=== PATIENT | female | born 1940 | race Asian ===

== ENCOUNTER 2022-11-02 06:13 | Inpatient (IN) | payer MEDICARE ==
[~2022-11-02] VITALS: Ht 160 cm; Wt 50.8 kg
[2022-11-02 08:00] VITALS: BP 141/92; TEMP 98; O2SAT 96
[2022-11-02] MEDS ORDERED: TEMAZEPAM 7.5 MG CAPSULE PO PRN (08:15)
[2022-11-02] MEDS ORDERED: MAGNESIUM HYDROXIDE 30 ML LIQUID UDC PO PRN (08:15)
[2022-11-02] MEDS ORDERED: MAG HYDROX/AL HYDROX/SIMETH 30 ML LIQUID UDC PO PRN (08:15)
[2022-11-02] MEDS ORDERED: ACETAMINOPHEN 325 MG TABLET PO PRN (08:15)
[2022-11-02] MEDS ORDERED: LORAZEPAM 0.5 MG TABLET PO PRN (08:15)
[2022-11-02] MEDS ORDERED: BLOOD SUGAR DIAGNOSTIC 1 EACH STRIP VI ONE (08:45)
[2022-11-02 13:47] LABS: THYROID STIMULATING HORMONE 2.108 mIU/mL (0.358-3.740)
[2022-11-02 15:15] VITALS: BP 140/84; TEMP 98; O2SAT 98
[2022-11-02 20:00] VITALS: BP 123/82; TEMP 98.4; O2SAT 100
[2022-11-02] MEDS: OLANZAPINE 2.5 MG TABLET PO SCH (20:21)
[2022-11-02] MEDS: HYDROCORTISONE 1% CREAM 30 GM TUBE TP SCH (20:25)
[2022-11-03] MEDS: HYDROCORTISONE 1% CREAM 30 GM TUBE TP SCH ×5 (06:37→23:36)
[2022-11-03 08:08] LABS: BASOPHILS % (AUTO) 0.5 % (0.0-2.0); EOSINOPHILS # (AUTO) 0.1 K/uL (0.0-0.7); EOSINOPHILS % (AUTO) 1.6 % (0.0-7.0); HEMATOCRIT 36.7 % (31.2-41.9); HEMOGLOBIN 12.3 g/dL (10.9-14.3); LYMPHOCYTES # (AUTO) 0.5 K/uL (0.8-4.8); LYMPHOCYTES % (AUTO) 13.7 % (20.5-51.5); MEAN CORPUSCULAR HEMOGLOBIN 31.3 uug (24.7-32.8); MEAN CORPUSCULAR HGB CONC 34 g/dL (32.3-35.6); MEAN CORPUSCULAR VOLUME 93.4 fL (75.5-95.3); MONOCYTES # (AUTO) 0.3 K/uL (0.1-1.30); NEUTROPHILS # (AUTO) 3.1 K/uL (1.8-8.9); NEUTROPHILS % (AUTO) 77.2 % (38.5-71.5); PLATELET COUNT (AUTO) 252 K/uL (179-408); RED BLOOD CELL COUNT(AUTO) 3.93 MIL/uL (3.63-4.92); RED CELL DISTRIBUTION WIDTH 13.2 % (12.3-17.7)
[2022-11-03 08:11] VITALS: BP 115/77; TEMP 98.2; O2SAT 99
[2022-11-03 08:21] LABS: DIFFERENTIAL COMMENT 1
[2022-11-03 08:25] LABS: CALCIUM 8.5 mg/dL (8.5-10.1); CARBON DIOXIDE 29 mmol/L (21-32); CHLORIDE 104 mmol/L (98-107); CREATININE 0.6 mg/dL (0.6-1.3); GLUCOSE 105 mg/dL (74-106); POTASSIUM 3.3 mmol/L (3.5-5.1); SODIUM SERUM 141 mmol/L (136-145); UREA NITROGEN, BLOOD 17 mg/dL (7-18)
[2022-11-03] MEDS: POTASSIUM CHLORIDE 10 MEQ TAB.PRT.SR PO SCH ×2 (13:45→15:45)
[2022-11-03 15:39] VITALS: BP_SYST 108; BP_SYST 133; BP_DIAS 65; BP_DIAS 74; TEMP 98.2; O2SAT 98
[2022-11-03 20:11] VITALS: BP 111/66; TEMP 98.3; O2SAT 98
[2022-11-03] MEDS: OLANZAPINE 2.5 MG TABLET PO SCH (20:16)
[2022-11-04] MEDS: HYDROCORTISONE 1% CREAM 30 GM TUBE TP SCH ×3 (05:32→18:39)
[2022-11-04 08:04] VITALS: BP 142/90; TEMP 98; O2SAT 100
[2022-11-04 15:37] VITALS: BP 106/57; TEMP 98; O2SAT 98
[2022-11-04 20:05] VITALS: BP 118/62; TEMP 98.2; O2SAT 98
[2022-11-04] MEDS: OLANZAPINE 2.5 MG TABLET PO SCH (21:00)
[2022-11-05] MEDS: HYDROCORTISONE 1% CREAM 30 GM TUBE TP SCH ×4 (06:00→18:23)
[2022-11-05 07:30] VITALS: BP 172/104; TEMP 98; O2SAT 99
[2022-11-05] MEDS ORDERED: CLONIDINE-TTS 1 PATCH TD SCH (12:00)
[2022-11-05 15:37] VITALS: BP 147/91; TEMP 98; O2SAT 99
[2022-11-05 20:43] VITALS: BP 117/66; TEMP 98; O2SAT 99
[2022-11-05] MEDS: OLANZAPINE 2.5 MG TABLET PO SCH (21:00)
[2022-11-06] MEDS: HYDROCORTISONE 1% CREAM 30 GM TUBE TP SCH ×4 (06:00→17:48)
[2022-11-06 08:03] VITALS: BP 167/99; TEMP 98.3; O2SAT 98
[2022-11-06 16:20] VITALS: BP 186/110; TEMP 98.1; O2SAT 99
[2022-11-06 17:51] VITALS: BP 148/95; O2SAT 99
[2022-11-06] MEDS ORDERED: METOPROLOL TARTRATE 25 MG TABLET PO ONE (18:00)
[2022-11-06 20:00] VITALS: BP 154/92; TEMP 98.4; O2SAT 100
[2022-11-06] MEDS: OLANZAPINE 2.5 MG TABLET PO SCH (21:00)
[2022-11-07] MEDS: HYDROCORTISONE 1% CREAM 30 GM TUBE TP SCH ×5 (05:59→23:58)
[2022-11-07 08:45] VITALS: BP 151/91; TEMP 98.2; O2SAT 98
[2022-11-07] MEDS: CLONIDINE TTS 2 PATCH TD SCH (14:32)
[2022-11-07 16:35] VITALS: BP 130/87; TEMP 97.9; O2SAT 98
[2022-11-07] MEDS: OLANZAPINE 2.5 MG TABLET PO SCH (20:05)
[2022-11-07 20:27] VITALS: BP 125/80; TEMP 98; O2SAT 99
[2022-11-08] MEDS: HYDROCORTISONE 1% CREAM 30 GM TUBE TP SCH ×3 (05:57→17:07)
[2022-11-08 07:51] VITALS: BP 141/86; TEMP 98.3; O2SAT 99
[2022-11-08 16:09] VITALS: BP 163/97; TEMP 98; O2SAT 98
[2022-11-08] MEDS ORDERED: OLANZAPINE 10 MG VIAL IM PRN (16:30)
[2022-11-08] MEDS: OLANZAPINE 2.5 MG TABLET PO SCH (20:45)
[2022-11-08 21:10] VITALS: BP 149/87; TEMP 98; O2SAT 100
[2022-11-09] MEDS: HYDROCORTISONE 1% CREAM 30 GM TUBE TP SCH ×4 (06:26→18:40)
[2022-11-09 08:00] VITALS: BP 146/83; TEMP 98; O2SAT 100
[2022-11-09 16:38] VITALS: BP 165/87; TEMP 97; O2SAT 100
[2022-11-09 20:06] VITALS: BP 143/78; TEMP 98.2; O2SAT 100
[2022-11-09] MEDS: OLANZAPINE 2.5 MG TABLET PO SCH (20:40)
[2022-11-10] MEDS: HYDROCORTISONE 1% CREAM 30 GM TUBE TP SCH ×4 (00:20→17:38)
[2022-11-10 07:43] VITALS: BP 138/79; TEMP 97.6; O2SAT 100
[2022-11-10 08:12] LABS: CALCIUM 9.1 mg/dL (8.5-10.1); CARBON DIOXIDE 30 mmol/L (21-32); CHLORIDE 103 mmol/L (98-107); CREATININE 0.7 mg/dL (0.6-1.3); GLUCOSE 85 mg/dL (74-106); POTASSIUM 3.9 mmol/L (3.5-5.1); SODIUM SERUM 139 mmol/L (136-145); UREA NITROGEN, BLOOD 20 mg/dL (7-18)
[2022-11-10] MEDS ORDERED: OLANZAPINE 10 MG VIAL IM PRN (10:45)
[2022-11-10] MEDS: OLANZAPINE 2.5 MG TABLET PO SCH ×2 (11:19→20:22)
[2022-11-10 15:40] VITALS: BP 116/62; TEMP 98.6; O2SAT 98
[2022-11-10 20:35] VITALS: BP 146/72; TEMP 98.2; O2SAT 100
[2022-11-11] MEDS: HYDROCORTISONE 1% CREAM 30 GM TUBE TP SCH ×5 (06:40→23:22)
[2022-11-11] MEDS: OLANZAPINE 2.5 MG TABLET PO SCH ×2 (09:30→20:20)
[2022-11-11 11:01] VITALS: BP 164/91; TEMP 98; O2SAT 99
[2022-11-11 17:34] VITALS: BP 168/87; TEMP 98.2
[2022-11-11 21:26] VITALS: BP 132/79; TEMP 98.2; O2SAT 98
[2022-11-12] MEDS: HYDROCORTISONE 1% CREAM 30 GM TUBE TP SCH ×3 (05:40→16:28)
[2022-11-12 08:00] VITALS: BP 159/87; TEMP 98.1; O2SAT 100
[2022-11-12] MEDS: OLANZAPINE 2.5 MG TABLET PO SCH (09:19)
[2022-11-12] MEDS: DIVALPROEX SPRINKLE 125 MG CAP.SPRINK PO SCH ×3 (09:23→16:27)
[2022-11-12 15:57] VITALS: BP 131/78; TEMP 98.1; O2SAT 98
[2022-11-12] MEDS: OLANZAPINE 5 MG TABLET PO SCH (20:03)
[2022-11-12 21:23] VITALS: BP 143/79; TEMP 98; O2SAT 96
[2022-11-13 07:57] VITALS: BP 193/95; TEMP 98.3; O2SAT 98
[2022-11-13] MEDS: DIVALPROEX SPRINKLE 125 MG CAP.SPRINK PO SCH ×3 (08:21→16:40)
[2022-11-13] MEDS: OLANZAPINE 2.5 MG TABLET PO SCH (08:21)
[2022-11-13 16:34] VITALS: BP 127/73; TEMP 98.1; O2SAT 98
[2022-11-13 20:00] VITALS: BP 140/71; TEMP 98; O2SAT 98
[2022-11-13] MEDS: OLANZAPINE 5 MG TABLET PO SCH (20:46)
[2022-11-14 08:08] VITALS: BP 143/85; TEMP 98.5; O2SAT 98
[2022-11-14] MEDS: DIVALPROEX SPRINKLE 125 MG CAP.SPRINK PO SCH ×3 (08:27→16:38)
[2022-11-14] MEDS: OLANZAPINE 2.5 MG TABLET PO SCH (08:27)
[2022-11-14] MEDS: CLONIDINE TTS 2 PATCH TD SCH (13:44)
[2022-11-14 16:17] VITALS: BP 133/84; TEMP 98.2; O2SAT 99
[2022-11-14 19:54] VITALS: BP 161/72; TEMP 98; O2SAT 98
[2022-11-14] MEDS: OLANZAPINE 5 MG TABLET PO SCH (20:15)
[2022-11-15 07:52] VITALS: BP 148/87; TEMP 98.2; O2SAT 99
[2022-11-15] MEDS: DIVALPROEX SPRINKLE 125 MG CAP.SPRINK PO SCH ×2 (08:52→16:56)
[2022-11-15] MEDS: OLANZAPINE 2.5 MG TABLET PO SCH (08:52)
[2022-11-15] MEDS ORDERED: DIVALPROEX SPRINKLE 125 MG CAP.SPRINK PO ONE (13:00)
[2022-11-15 15:10] VITALS: BP 149/51; TEMP 98.3; O2SAT 99
[2022-11-15 20:27] VITALS: BP 176/88; TEMP 97.8; O2SAT 95
[2022-11-15] MEDS: OLANZAPINE 5 MG TABLET PO SCH (20:49)
[2022-11-15 22:02] VITALS: BP 154/88
[2022-11-16 07:05] LABS: BASOPHILS % (AUTO) 0.8 % (0.0-2.0); EOSINOPHILS # (AUTO) 0.1 K/uL (0.0-0.7); EOSINOPHILS % (AUTO) 2.4 % (0.0-7.0); HEMATOCRIT 37.7 % (31.2-41.9); HEMOGLOBIN 12.5 g/dL (10.9-14.3); LYMPHOCYTES # (AUTO) 1.1 K/uL (0.8-4.8); LYMPHOCYTES % (AUTO) 29.6 % (20.5-51.5); MEAN CORPUSCULAR HEMOGLOBIN 31.6 uug (24.7-32.8); MEAN CORPUSCULAR HGB CONC 33 g/dL (32.3-35.6); MEAN CORPUSCULAR VOLUME 94.8 fL (75.5-95.3); MONOCYTES # (AUTO) 0.2 K/uL (0.1-1.30); MONOCYTES % (AUTO) 5.7 % (0.0-11.0); NEUTROPHILS # (AUTO) 2.2 K/uL (1.8-8.9); NEUTROPHILS % (AUTO) 61.5 % (38.5-71.5); PLATELET COUNT (AUTO) 324 K/uL (179-408); RED BLOOD CELL COUNT(AUTO) 3.97 MIL/uL (3.63-4.92); RED CELL DISTRIBUTION WIDTH 13.8 % (12.3-17.7); WHITE BLOOD COUNT (AUTO) 3.6 K/uL (3.8-11.8)
[2022-11-16 07:25] LABS: DIFFERENTIAL COMMENT 1
[2022-11-16 07:41] LABS: ALANINE AMINOTRANSFERASE 16 U/L (14-59); ALBUMIN 3.8 g/dL (3.4-5.0); ALKALINE PHOSPHATASE 60 U/L (50-136); ASPARTATE AMINOTRANSFERASE 12 U/L (15-37); BILIRUBIN,TOTAL 0.4 mg/dL (0.2-1.0); CALCIUM 9.1 mg/dL (8.5-10.1); CARBON DIOXIDE 31 mmol/L (21-32); CHLORIDE 106 mmol/L (98-107); CREATININE 0.6 mg/dL (0.6-1.3); GLUCOSE 80 mg/dL (74-106); POTASSIUM 3.7 mmol/L (3.5-5.1); SODIUM SERUM 143 mmol/L (136-145); TOTAL PROTEIN, SERUM 7.5 g/dL (6.4-8.2); UREA NITROGEN, BLOOD 18 mg/dL (7-18); VALPROIC ACID 49 ug/mL (50-100)
[2022-11-16 08:30] VITALS: BP 157/77; TEMP 98.2; O2SAT 100
[2022-11-16] MEDS: DIVALPROEX SPRINKLE 125 MG CAP.SPRINK PO SCH (08:30)
[2022-11-16] MEDS: OLANZAPINE 2.5 MG TABLET PO SCH (08:30)
[2022-11-16] MEDS ORDERED: AMLODIPINE 5 MG TABLET PO SCH (12:00)
== END 2022-11-16 11:48 | DRG 885 ==
LOC: ER 06:25 → GPS 07:41
PROVIDERS: ADMIT Psychiatry & Neurology Psychosomatic Medicine
DX: F29 Unspecified psychosis not due to a substance or known physiological condition (principal); F42.3 Hoarding disorder; F31.9 Bipolar disorder, unspecified; E87.6 Hypokalemia; D32.0 Benign neoplasm of cerebral meninges; L74.0 Miliaria rubra
CPT/HCPCS: 36415; 70450; 80164; 82747; 84443; 85014; 85025; 93005